=== PATIENT | male | born 1980 | race Caucasian/White ===

== ENCOUNTER 2016-10-16 11:44 | Emergency (ER) | payer OTHER ==
[~2016-10-16] VITALS: Ht 170.2 cm; Wt 81.5 kg
[~2016-10-16 11:44] MED LIST: NOCURR
[2016-10-16 13:48] VITALS: BP 152/101
[2016-10-16] MEDS ORDERED: ACETAMINOPHEN 325 MG TABLET PO ONE (14:15)
== END 2016-10-16 14:22 | disposition home or self-care (01) ==
LOC: EMS 11:47
DX: R03.0 Elevated blood-pressure reading, without diagnosis of hypertension (principal); R51 Headache; H53.8 Other visual disturbances
CPT/HCPCS: 99283

== ENCOUNTER 2016-11-29 11:54 | Emergency (ER) | payer OTHER ==
[~2016-11-29] VITALS: Ht 167.6 cm; Wt 86.4 kg
[2016-11-29] MEDS ORDERED: ATEN100T PO (12:06)
[2016-11-29] MEDS ORDERED: IBUP-1547 PO (12:06)
[2016-11-29 13:05] LABS: BASOPHILS % (AUTO) 0.4 % (0.0-2.0); EOSINOPHILS % (AUTO) 0.9 % (1.0-6.0); HEMATOCRIT 44.5 % (41-53); HEMOGLOBIN 14.9 g/dL (13.5-17.5); LYMPHOCYTES # (AUTO) 1.7 K/uL (1.0-4.8); LYMPHOCYTES % (AUTO) 27.4 % (22.0-44.0); MEAN CORPUSCULAR HEMOGLOBIN 30.1 pg (26.0-34.0); MEAN CORPUSCULAR HGB CONC 33.5 G/dL (31.0-37.0); MEAN CORPUSCULAR VOLUME 90 fL (80-100); MONOCYTES # (AUTO) 0.5 K/uL (0.1-1.0); MONOCYTES % (AUTO) 7.2 % (2.0-9.0); NEUTROPHILS # (AUTO) 4.1 K/uL (1.8-7.7); NEUTROPHILS % (AUTO) 64.1 % (40.0-70.0); PLATELET COUNT (AUTO) 282 K/uL (150-450); RED BLOOD CELL COUNT(AUTO) 4.97 MIL/uL (4.50-5.90); WHITE BLOOD COUNT (AUTO) 6.4 K/uL (4.5-11.0)
[2016-11-29 13:15] LABS: ANION GAP 9 mmol/L (8-16); CALCIUM, TOTAL 9.1 mg/dL (8.8-10.5); CARBON DIOXIDE 28 mmol/L (22-29); CHLORIDE 104 mmol/L (98-107); CREATININE 0.83 mg/dL (0.60-1.30); GLOMERULAR FILTR. RATE CALC > 60 mL/min (>60); POTASSIUM 3.8 mmol/L (3.5-5.1); SODIUM SERUM 141 mmol/L (136-145); UREA NITROGEN, BLOOD 11 mg/dL (7-18)
[2016-11-29 13:40] LABS: ALANINE AMINOTRANSFERASE 103 U/L (12-78); ALBUMIN 4.1 g/dL (3.4-5.0); ASPARTATE AMINOTRANSFERASE 33 U/L (15-37); BILIRUBIN,TOTAL 0.3 mg/dL (0.1-1.0); CREATINE KINASE MB 1.5 ng/mL (0-5); CREATINE KINASE, TOTAL 317 U/L (39-308); TOTAL PROTEIN, SERUM 7.8 g/dL (6.4-8.2)
[2016-11-29] MEDS ORDERED: SODIUM CHLORIDE 0.9% 1,000 ML IV ONE (13:45)
[2016-11-29] MEDS ORDERED: METOCLOPRAMIDE HCL 5 MG/ML 2 ML VIAL IVP ONE (13:45)
[2016-11-29] MEDS ORDERED: KETOROLAC TROMETHAMINE 30 MG/ML VIAL IVP ONE (15:00)
[2016-11-29 16:26] VITALS: BP 124/72
== END 2016-11-29 16:32 | disposition home or self-care (01) ==
LOC: EMS 11:55
DX: G43.909 Migraine, unspecified, not intractable, without status migrainosus (principal)
CPT/HCPCS: 36415; 70450; 80053; 82550; 82553; 84484; 85025; 86140; 93005; 96361; 96374; 96375; 99285; J1885; J2765; J7030

== ENCOUNTER 2017-11-13 09:54 | Emergency (ER) | payer OTHER ==
[~2017-11-13] VITALS: Ht 170.2 cm; Wt 88.6 kg
[~2017-11-13 09:54] MED LIST changes: +ATEN100T PO; +IBUP-2071 PO; -NOCURR
[2017-11-13 10:58] VITALS: BP 140/80
== END 2017-11-13 11:03 | disposition home or self-care (01) ==
LOC: EMS 09:55
DX: J40 Bronchitis, not specified as acute or chronic (principal)
CPT/HCPCS: 99283

== ENCOUNTER 2018-02-02 14:32 | Emergency (ER) | payer OTHER ==
[~2018-02-02] VITALS: Ht 170.2 cm; Wt 88.6 kg
[2018-02-02] MEDS ORDERED: SUMAtriptan SUCCINATE 6 MG/0.5 ML VIAL SQ ONE (15:30)
[2018-02-02 15:32] LABS: GLUCOSE,POINT OF CARE 126 MG/DL (70-110)
[2018-02-02 16:27] VITALS: BP 142/98
== END 2018-02-02 16:47 | disposition home or self-care (01) ==
LOC: EMS 14:35
DX: G43.109 Migraine with aura, not intractable, without status migrainosus (principal)
CPT/HCPCS: 82948; 82962; 96372; 99283; J3030

== ENCOUNTER 2020-01-06 12:10 | Emergency (ER) | payer OTHER ==
[~2020-01-06] VITALS: Ht 170.2 cm; Wt 84.1 kg
[2020-01-06 12:12] VITALS: BP 153/99
== END 2020-01-06 13:40 | disposition left against medical advice (07) ==
LOC: EMS 12:15
DX: Z53.21 Procedure and treatment not carried out due to patient leaving prior to being seen by health care provider (principal)

== ENCOUNTER 2021-03-09 17:29 | Emergency (ER) | payer OTHER ==
[~2021-03-09] VITALS: Ht 170.2 cm; Wt 79.5 kg
[2021-03-09 19:57] LABS: COVID AG,FIA SOURCE NASOPHARYNGEAL
[2021-03-09 21:03] LABS: INFLUENZA TYPE A NEGATIVE FOR TYPE A (NEGATIVE); INFLUENZA TYPE B NEGATIVE FOR TYPE B (NEGATIVE)
[2021-03-09 21:47] VITALS: BP 135/83
== END 2021-03-09 22:00 | disposition home or self-care (01) ==
LOC: EMS 17:34
DX: U07.1 COVID-19 (principal); J22 Unspecified acute lower respiratory infection
CPT/HCPCS: 71045; 87426; 87804; 99284; U0003